=== PATIENT | female | born 1945 ===

== ENCOUNTER 2019-08-10 11:45 | Inpatient (IN) | payer OTHER ==
[~2019-08-10] VITALS: Ht 165.1 cm; Wt 75.3 kg
[2019-08-10] MEDS ORDERED: TRIPLE FLEX CA1 EACH PO (13:51)
[2019-08-10] MEDS ORDERED: POTASSIUM99 MG PO (13:52)
[2019-08-10] MEDS ORDERED: ASPIRIN81 M1 PO (13:52)
[2019-08-10] MEDS ORDERED: OMEPRA PO (13:53)
[2019-08-10] MEDS ORDERED: TOPROL XL25 M1 PO (13:54)
[2019-08-10] MEDS ORDERED: RANITIDINE HCL300 M1 PO (13:54)
[2019-08-10] MEDS ORDERED: CLONAZEPAM1 M1 PO ×2 (13:55)
[2019-08-10] MEDS ORDERED: VIT D PO (13:56)
[2019-08-10] MEDS ORDERED: [UNRECOGNIZED DRUG - OTHER] PO (13:58)
[2019-08-18] MEDS ORDERED: OMEPRAZOLE40 MG PO (08:00)
[2019-08-18] MEDS ORDERED: VITAMIN D400 UNI3 (08:01)
[2019-08-18] MEDS ORDERED: VITAMIN D1000 UNI1 PO (08:02)
[2019-08-18] MEDS ORDERED: PREVENT SOFTGE1 EACH PO (08:07)
[2019-08-18] MEDS ORDERED: VITAMIN D310000 UNIT PO (08:08)
== END 2019-08-20 16:49 | disposition home or self-care (01) | DRG 330 ==
LOC: O/R 11:45 → SURG 08-18 04:50 → O/R 08-18 04:50 → SURH 08-18 04:50 → O/R 08-18 09:00 → SURG 08-18 15:03 → SURH 08-19 14:50
PROVIDERS: ADMIT Colon & Rectal Surgery
PROC: 0WUF47Z Supplement Abdominal Wall with Autologous Tissue Substitute, Percutaneous Endoscopic Approach (ICD-10-PCS; 2019-08-18)
PROC: 0TQB4ZZ Repair Bladder, Percutaneous Endoscopic Approach (ICD-10-PCS; 2019-08-18)
PROC: 0DJD8ZZ Inspection of Lower Intestinal Tract, Via Natural or Artificial Opening Endoscopic (ICD-10-PCS; 2019-08-18)
PROC: 0DTN4ZZ Resection of Sigmoid Colon, Percutaneous Endoscopic Approach (ICD-10-PCS; principal; 2019-08-18 09:00)
DX: K57.20 Diverticulitis of large intestine with perforation and abscess without bleeding (principal); N32.1 Vesicointestinal fistula; N99.72 Accidental puncture and laceration of a genitourinary system organ or structure during other procedure